=== PATIENT | male | born 1985 | race Hispanic/Latino ===

== ENCOUNTER 2019-02-22 06:05 | Emergency (ER) | payer BC ==
[2019-02-22 06:47] LABS: Absolute Lymphocytes (CBC) 0.5 K/uL (0.7-4.9); Basophils % 0.1 % (0-1.3); Eosinophils % 0.4 % (0-4.4); Hematocrit 47.5 % (39.6-49.0); Lymphocytes % 3.2 % (15.3-44.8); Monocytes % 3.9 % (3.3-12.3); RBC Red Blood Cell Count 5.34 M/uL (4.33-5.43)
[2019-02-22] MEDS ORDERED: NA CHLORIDE 0.9% 1,000 ML ONE (06:50)
[2019-02-22] MEDS ORDERED: ONDANSETRON 4 MG/2 ML VIAL ONE (06:50)
[2019-02-22 07:00] LABS: ALT/SGPT 33 U/L (12-78); AST/SGOT 17 U/L (15-37); Albumin 4.3 g/dL (3.4-5.0); Alkaline Phosphatase 80 U/L (45-117); BUN Blood Urea Nitrogen 22 mg/dL (7-18); Bicarbonate 25 mmol/L (21-32); Bilirubin Direct 0.1 mg/dL (0-0.2); Bilirubin Total 0.5 mg/dL (0.2-1.0); CKMB Creatine Kinase MB < 1.0 ng/mL (0.3-3.6); Creatine Phosphokinase 57 U/L (39-308); Glucose Level 115 mg/dL (74-106); Lipase 111 U/L (73-393); Magnesium 2.6 mg/dL (1.8-2.4); Potassium 3.8 mmol/L (3.5-5.1); Protein, Total 8.2 g/dL (6.4-8.2); Sodium Level 141 mmol/L (136-145); Troponin I < 0.02 ng/mL (0.0-0.045)
[2019-02-22] MEDS ORDERED: PANTOPRAZOLE 40 MG INJ ONE (07:00)
[2019-02-22] MEDS ORDERED: DICYCLOMINE HCL 10 MG CAP ONE (07:45)
[2019-02-22] MEDS ORDERED: MORPHINE 4 MG/ML SYR ONE (07:46)
--- NOTE | 2019-02-22 07:47 | RAD REPORT ---
EXAM DESCRIPTION: CT - Abdomen Pelvis W Contrast - 02/22/2019 7:17 am CLINICAL HISTORY: Abdominal pain, vomiting COMPARISON: None. TECHNIQUE: Biphasic, helical CT imaging of the abdomen and pelvis was performed following 100 ml non -ionic IV contrast. No oral contrast administered. All CT scans are performed using dose optimization technique as appropriate and may include automated exposure control or mA/KV adjustment according to patient size. FINDINGS: No suspicious findings in the lung bases. Liver shows a mild diffuse fatty infiltration pattern. No focal liver lesions. Spleen and pancreas un remarkable. Gallbladder and biliary tree are also without suspicious finding. Symmetric renal function is seen with no hydronephrosis or suspicious renal mass. No pyelonephritis o r acute parenchymal process. No bladder abnormalities. No adrenal abnormalities. Stomach is filled with fluid. No gastric wall thickening or mass. No duodenum abnormality seen. Multi ple loops of jejunum and ileum are fluid-filled and distended. The appendix is normal. No focal mass or wall thickening. No colon abnormalities. No free air, free fluid or inflammatory stranding. No m ass or bulky lymphadenopathy. Fat extends into the origin of the right inguinal canal. A small fat on ly left inguinal hernia is present. No suspicious bony findings. IMPRESSION: Gastroenteritis or ileus pattern. No bowel obstruction or surgically emergent finding. Fatty infiltration of the liver.
[2019-02-22 07:58] LABS: Barbiturates NEGATIVE (NEGATIVE); Benzodiazepines NEGATIVE (NEGATIVE); Cocaine NEGATIVE (NEGATIVE); METHAMPHETAM NEGATIVE (NEGATIVE); Methadone NEGATIVE (NEGATIVE); Opiates NEGATIVE (NEGATIVE); Phencyclidine NEGATIVE (NEGATIVE); THC Cannibis NEGATIVE (NEGATIVE)
--- NOTE | 2019-02-22 08:16 | EDPHYS ---
Physician Documentation [facility] Name: Jamar Burris Jr Age: 34 yrs Sex: Male : 1985 Arrival Date: 02/22/2019 Time: 06:09 Bed 15 Private MD: Alfonzo Kerr ED Physician Nahum Galvan HPI: 02/22 06:30 This 34 yrs old Male presents to ER via Unassigned with complaints of Vomiting.cp 06:30 The patient presents to the emergency department with nausea, that is mild, vomiting, cp that is intermittent, diarrhea, that is intermittent, abdominal pain, of the upper abdomen. Onset: The symptoms/episode began/occurred last night. Possible causes: unknown. Associated signs and symptoms: Pertinent negatives: dysuria, fever, GI bleeding, chest pain. Severity of symptoms: in the emergency department the symptoms are unchanged despite home interventions. Historical: - Allergies: 06:13 No Known Allergies; jb4 - Home Meds: 06:13 lisinopril-hydrochlorothiazide oral oral [Active]; jb4 - PMHx: 06:13 Hypertension; jb4 - PSHx: 06:13 None; jb4 - Immunization history:: Adult Immunizations up to date. - Social history:: Smoking status: Patient/guardian denies using tobacco, Patient uses alcohol, occasionally. - Ebola Screening: : No symptoms or risks identified at this time. ROS: 06:31 Eyes: Negative for injury, pain, redness, and discharge. cp 06:31 Constitutional: Negative for body aches, chills, fever, poor PO intake. 06:31 ENT: Negative for drainage from ear(s), ear pain, sore throat, difficulty swallowing, difficulty handling secretions. 06:31 Cardiovascular: Negative for chest pain, edema, palpitations. 06:31 Respiratory: Negative for cough, shortness of breath, wheezing. 06:31 Abdomen/GI: Positive for abdominal pain, nausea, vomiting, and diarrhea, Negative for hematemesis, black/tarry stool, rectal bleeding. 06:31 : Negative for urinary symptoms. 06:31 Skin: Negative for rash. 06:31 Neuro: Negative for altered mental status, headache, weakness. 06:31 All other systems are negative. Exam: 06:33 Head/Face: Normocephalic, atraumatic. cp 06:33 Constitutional: The patient appears in no acute distress, alert, awake, non-toxic, well developed, well nourished. 06:33 Eyes: Periorbital structures: appear normal, Conjunctiva: normal, no exudate, no injection, Sclera: no appreciated abnormality, Lids and lashes: appear normal, bilaterally. 06:33 ENT: External ear(s): are unremarkable, Nose: is normal, Mouth: Lips: moist, Oral mucosa: pink and intact, moist, Posterior pharynx: is normal, airway is patent, no erythema, no exudate. 06:33 Neck: ROM/movement: Meningeal signs: are not present, nuchal rigidity, is not appreciated. 06:33 Chest/axilla: Inspection: normal, Palpation: is normal, no crepitus, no tenderness. 06:33 Cardiovascular: Rate: tachycardic, Rhythm: regular, Edema: is not appreciated, JVD: is not appreciated. 06:33 Respiratory: the patient does not display signs of respiratory distress, Respirations: normal, no use of accessory muscles, no retractions, no splinting, no tachypnea, labored breathing, is not present, Breath sounds: are clear throughout, no decreased breath sounds, no stridor, no wheezing. 06:33 Abdomen/GI: Inspection: abdomen appears normal, Bowel sounds: active, all quadrants, Palpation: soft, in all quadrants, moderate abdominal tenderness, in the right upper quadrant and left upper quadrant, rebound tenderness, is not appreciated, voluntary guarding, is not appreciated, involuntary guarding, is not appreciated. Vital Signs: 06:13 BP 131 / 93; Pulse 126; Resp 16; Temp 99.3(O); Pulse Ox 95% on R/A; Weight 106.14 kg jb4 (R); Height 5 ft. 5 in. (165.10 cm) (R); Pain 5/10; 07:09 BP 134 / 86; Pulse 104; Resp 16; Temp 97.6(TE); Pulse Ox 98% on R/A; mh5 08:33 BP 128 / 81; Pulse 65; Resp 16; Temp 98.9; Pulse Ox 96% ; bp 06:13 Body Mass Index 38.94 (106.14 kg, 165.10 cm) jb4 MDM: 06:15 Patient medically screened. cp 07:00 Differential diagnosis: gastritis, pancreatitis, viral gastroenteritis, cp gastroenteritis, colitis. 08:15 Data reviewed: vital signs, nurses notes, lab test result(s), radiologic studies, CT cp scan. 08:15 Counseling: I had a detailed discussion with the patient and/or guardian regarding: the cp historical points, exam findings, and any diagnostic results supporting the discharge/admit diagnosis, lab results, radiology results, to return to the emergency department if symptoms worsen or persist or if there are any questions or concerns that arise at home. Response to treatment: the patient's symptoms have markedly improved after treatment, VSS. Pain and nausea markedly improved. Will discharge to home for continued monitoring. 02/22 06:27 Order name: Basic Metabolic Panel 02/22 06:27 Order name: CBC with Diff 02/22 06:27 Order name: Creatinine for Radiology 02/22 06:27 Order name: Hepatic Function cp 02/22 06:27 Order name: Lipase cp 02/22 06:27 Order name: Magnesium cp 02/22 06:27 Order name: CK; Complete Time: 07:02 cp 02/22 06:27 Order name: Troponin I; Complete Time: 07:02 cp 02/22 06:27 Order name: UDS cp 02/22 06:27 Order name: Ckmb; Complete Time: 07:02 cp 02/22 06:28 Order name: Basic Metabolic Panel; Complete Time: 07:02 EDMS 02/22 07:03 Interpretation: Normal except: GLUC 115; BUN 22; GFR 85. cp 02/22 06:28 Order name: CBC with Automated Diff EDMS 02/22 06:57 Interpretation: Normal except: WBC 14.7; MINOO% 92.4; LYM% 3.2; NEUT A 13.6; LYMA 0.5. cp 02/22 06:28 Order name: Creatinine (Radiology Only); Complete Time: 06:57 EDMS 02/22 06:28 Order name: Liver (Hepatic) Function; Complete Time: 07:02 EDMS 02/22 06:27 Order name: IV Saline Lock; Complete Time: 06:28 cp 02/22 06:27 Order name: Labs collected and sent; Complete Time: 06:43 cp 02/22 06:27 Order name: EKG; Complete Time: 06:29 cp 02/22 06:28 Order name: Lipase; Complete Time: 07:02 EDMS 02/22 06:28 Order name: Magnesium; Complete Time: 07:02 EDMS 02/22 07:49 Interpretation: Abnormal: MG 2.6. cp 02/22 06:58 Order name: CT Abd/Pelvis - IV Contrast Only; Complete Time: 07:48 cp 02/22 07:44 Order name: Urine Dipstick--Ancillary (enter results) em1 02/22 06:27 Order name: EKG - Nurse/Tech; Complete Time: 06:28 cp 02/22 06:27 Order name: Urine Dipstick-Ancillary (obtain specimen); Complete Time: 07:37 cp 02/22 07:50 Order name: PO challenge; Complete Time: 08:03 cp Administered Medications: 06:38 CANCELLED (Other Intervention Used): Pepcid 20 mg IVP once cc3 06:39 CANCELLED (Physician Discretion): ProTONIX 40 mg IVP once cp 06:40 Drug: NS 0.9% 1000 ml Route: IV; Rate: 1 bolus; Site: right antecubital; jb4 08:35 Follow up: IV Status: Completed infusion; IV Intake: 1000ml bp 06:40 Drug: Zofran 4 mg Route: IVP; Site: right antecubital; jb4 07:37 Follow up: Response: Nausea is decreased bp 06:51 Drug: ProTONIX 40 mg Route: IVP; Site: right antecubital; jb4 07:36 Follow up: Response: No adverse reaction bp 07:20 Drug: morphine 4 mg Route: IVP; Site: right antecubital; bp 08:04 Follow up: Response: Pain is decreased bp 07:20 Drug: Bentyl 20 mg Route: PO; bp 08:04 Follow up: Response: No adverse reaction bp 08:15 Drug: Cipro 500 mg Route: PO; bp 08:34 Follow up: Response: No adverse reaction bp 08:15 Drug: metroNIDAZOLE 500 mg Route: PO; bp 08:35 Follow up: Response: No adverse reaction bp Disposition: 18:55 Co-signature as Attending Physician, Nahum Galvan MD Available for consultation at ps1 all times . Disposition: 02/22/19 08:15 Discharged to Home. Impression: Nausea and vomiting, Diarrhea, unspecified. - Condition is Stable. - Discharge Instructions: Food Choices to Help Relieve Diarrhea, Adult, Diarrhea, Adult, Nausea and Vomiting, Adult. - Prescriptions for Cipro 500 mg Oral Tablet - take 1 tablet by ORAL route every 12 hours for 10 days; 20 tablet. Tylenol- Codeine #3 300-30 mg Oral Tablet - take 2 tablets by ORAL route every 6 hours As needed; 15 tablet. Zofran 4 mg Oral Tablet - take 1 tablet by ORAL route every 12 hours As needed; 20 tablet. Metronidazole 500 mg Oral Tablet - take 1 tablet by ORAL route every 8 hours; 30 tablet. - Medication Reconciliation Form, Thank You Letter, Antibiotic Education, Prescription Opioid Use, Work release form form. - Follow up: Private Physician; When: 1 - 2 days; Reason: Recheck today's complaints. - Problem is new. - Symptoms have improved. Signatures: Dispatcher [employer] EDMS Cedric Khanna PA PA cp Ceasar Rincon, RN RN jb4 Alfonzo Barrios RN RN Nahum Copeland MD MD ps1 Cordel, Charlene cc3 Corrections: (The following items were deleted from the chart) 06:38 06:27 Pepcid 20 mg IVP once ordered. cp cc3 06:39 06:38 ProTONIX 40 mg IVP once ordered. cp cp 06:57 06:57 Normal except: WBC 14.7; MINOO% 92.4; LYM% 3.2; NEUT A 13.6. cp cp 08:36 08:15 02/22/2019 08:15 Discharged to Home. Impression: Nausea and vomiting; Diarrhea, bp unspecified. Condition is Stable. Forms are Medication Reconciliation Form, Thank You Letter, Antibiotic Education, Prescription Opioid Use. Follow up: Private Physician; When: 1 - 2 days; Reason: Recheck today's complaints. Problem is new. Symptoms have improved. cp
--- NOTE | 2019-02-22 08:16 | ER ---
Nurse's Notes [facility] Name: Jamar Burris Jr Age: 34 yrs Sex: Male : 1985 Arrival Date: 02/22/2019 Time: 06:09 Bed 15 Private MD: Alfonzo Kerr Diagnosis: Nausea and vomiting;Diarrhea, unspecified Presentation: 02/22 06:13 Presenting complaint: Patient states: I started vomiting yesterday, I feel weak all jb4 over dizzy and have cramps. 06:13 Transition of care: patient was not received from another setting of care. Onset of jb4 symptoms was February 21, 2019. Risk Assessment: Do you want to hurt yourself or someone else? Patient reports no desire to harm self or others. Initial Sepsis Screen: Does the patient meet any 2 criteria? HR > 90 bpm. Yes Does the patient have a suspected source of infection? Yes: Acute abdominal pain. Care prior to arrival: None. 06:13 Method Of Arrival: Ambulatory jb4 06:13 Acuity: YKOO 3 jb4 Historical: - Allergies: 06:13 No Known Allergies; jb4 - Home Meds: 06:13 lisinopril-hydrochlorothiazide oral oral [Active]; jb4 - PMHx: 06:13 Hypertension; jb4 - PSHx: 06:13 None; jb4 - Immunization history:: Adult Immunizations up to date. - Social history:: Smoking status: Patient/guardian denies using tobacco, Patient uses alcohol, occasionally. - Ebola Screening: : No symptoms or risks identified at this time. Screenin:52 Abuse screen: Denies threats or abuse. Nutritional screening: No deficits noted. jb4 Tuberculosis screening: No symptoms or risk factors identified. Fall Risk IV access (20 points). Gait- Weak (10 pts.). Total Bermeo Fall Scale indicates Low Risk Score (25-44 pts). Fall prevention measures have been instituted. Side Rails Up X 2 Placed close to Nursing Station Frequent Obs/Assesments occuring Family Present and informed to notify staff if they need to leave bedside As available Patient and Family Educated on Fall Prevention Program and strategies. Assessment: 06:51 General: Appears in no apparent distress. uncomfortable, Behavior is calm, cooperative, jb4 appropriate for age. Pain: Complains of pain in abdomen Pain does not radiate. Pain currently is 10 out of 10 on a pain scale. Quality of pain is described as crampy, Pain began 1 day ago. Neuro: Level of Consciousness is awake, alert, obeys commands, Oriented to person, place, time, situation. Cardiovascular: Patient's skin is warm and dry. Respiratory: Airway is patent Respiratory effort is even, unlabored, Respiratory pattern is regular, symmetrical. GI: Abdomen is non-distended, obese, Bowel sounds present X 4 quads. Abd is soft X 4 quads Abdomen is tender to palpation X 4 quads. : No signs and/or symptoms were reported regarding the genitourinary system. EENT: No signs and/or symptoms were reported regarding the EENT system. Derm: Skin is intact, Skin is pink, warm \T\ dry. Musculoskeletal: Circulation, motion, and sensation intact. 07:00 Reassessment: RECD REPORT FROM JUVENTINO HENDRICKS. 34YO HM P/W VOMITING x2 DAYS. CT AND UOP bp PENDING. NO ACTIVE VOMITING AT THIS TIME. 07:13 Reassessment: PT TO CT. bp 08:32 Reassessment: PT D/C HOME AMBULATORY WITH FAMILY, DX WITH NAUSEA, VOMITING AND DIARRHEA.bp Vital Signs: 06:13 BP 131 / 93; Pulse 126; Resp 16; Temp 99.3(O); Pulse Ox 95% on R/A; Weight 106.14 kg jb4 (R); Height 5 ft. 5 in. (165.10 cm) (R); Pain 5/10; 07:09 BP 134 / 86; Pulse 104; Resp 16; Temp 97.6(TE); Pulse Ox 98% on R/A; mh5 08:33 BP 128 / 81; Pulse 65; Resp 16; Temp 98.9; Pulse Ox 96% ; bp 06:13 Body Mass Index 38.94 (106.14 kg, 165.10 cm) jb4 ED Course: 06:09 Patient arrived in ED. am2 06:10 Alfonzo Kerr MD is Private Physician. am2 06:10 Cedric Khanna PA is PHCP. cp 06:10 Mark Jiang MD is Attending Physician. cp 06:13 Arm band placed on left wrist. EKG completed in triage. Results shown to . jb4 06:20 Inserted saline lock: 20 gauge in right antecubital area, using aseptic technique. cc3 Blood collected. 06:21 Ceasar Rincon, RN is Primary Nurse. jb4 06:30 Triage completed. jb4 06:52 Patient has correct armband on for positive identification. Placed in gown. Bed in low jb4 position. Call light in reach. Side rails up X 1. Pulse ox on. NIBP on. 07:15 CT completed. Patient tolerated procedure well. Patient moved to CT via wheelchair. jg6 Patient moved to CT via wheelchair. 07:17 CT Abd/Pelvis - IV Contrast Only In Process Unspecified. EDMS 07:43 Urine collected: clean catch specimen, clear. 5 07:44 UDS Sent. 5 08:17 Nahum Galvan MD is Attending Physician. cp 08:32 No provider procedures requiring assistance completed. IV discontinued, intact, bp bleeding controlled, No redness/swelling at site. Pressure dressing applied. Administered Medications: 06:38 CANCELLED (Other Intervention Used): Pepcid 20 mg IVP once cc3 06:39 CANCELLED (Physician Discretion): ProTONIX 40 mg IVP once cp 06:40 Drug: NS 0.9% 1000 ml Route: IV; Rate: 1 bolus; Site: right antecubital; jb4 08:35 Follow up: IV Status: Completed infusion; IV Intake: 1000ml bp 06:40 Drug: Zofran 4 mg Route: IVP; Site: right antecubital; jb4 07:37 Follow up: Response: Nausea is decreased bp 06:51 Drug: ProTONIX 40 mg Route: IVP; Site: right antecubital; jb4 07:36 Follow up: Response: No adverse reaction bp 07:20 Drug: morphine 4 mg Route: IVP; Site: right antecubital; bp 08:04 Follow up: Response: Pain is decreased bp 07:20 Drug: Bentyl 20 mg Route: PO; bp 08:04 Follow up: Response: No adverse reaction bp 08:15 Drug: Cipro 500 mg Route: PO; bp 08:34 Follow up: Response: No adverse reaction bp 08:15 Drug: metroNIDAZOLE 500 mg Route: PO; bp 08:35 Follow up: Response: No adverse reaction bp Intake: 08:35 IV: 1000ml; Total: 1000ml. bp Outcome: 08:15 Discharge ordered by . cp 08:34 Discharged to home ambulatory, with family. bp 08:34 Condition: stable 08:34 Discharge instructions given to patient, Instructed on discharge instructions, follow up and referral plans. medication usage, Demonstrated understanding of instructions, follow-up care, medications, Prescriptions given X 4. 08:36 Patient left the ED. bp Signatures: Dispatcher [employer] EDMS Cedric Khanna PA PA cp Bryson, James, RN RN 4 Magui Izaguirre [facility] Luisa Cannon Brian, RN RN bp Suzy Diaz cc3 Machelle Prasad6
[2019-02-22 08:29] LABS: Urine Blood NEGATIVE (NEG); Urine Glucose TRACE (NEG); Urine Protein 2+ (NEG); Urine Specific Gravity 1.025 (1.005-1.030); Urine pH 6.5 (5.0-7.0)
[2019-02-22] MEDS ORDERED: metroNIDAZOLE 500 MG TABLET ONE (08:29)
[2019-02-22] MEDS ORDERED: CIPROFLOXACIN HCL 500 MG TAB ONE (08:29)
[2019-02-22 08:44] LABS: Blood Morphology Comment NOT SEEN (NOT SEEN); Platelet Estimate ADEQ; Urine White Blood Cell Casts OK
--- NOTE | 2019-02-22 12:50 | EKG ---
Test Date: 2019-02-22 Test Time: 06:20:19 [place]: ROSEANNE MEASUREMENT RESULTS: Intervals: Rate: 121 IL: 142 QRSD: 80 QT: 318 QTc: 451 [place]: P: 35 IL: 142 QRS: 146 T: 1 INTERPRETIVE STATEMENTS: Sinus tachycardia Inferior infarct, age undetermined Anterolateral infarct, age undetermined Abnormal ECG Compared to ECG 01/16/2006 07:53:39 Myocardial infarct finding now present Sinus rhythm no longer present Electronically Signed On 02-22-19 12:49:23 CDT by Raul Claros
== END 2019-02-22 08:36 | disposition home or self-care (01) ==
LOC: ER 06:05
DX: R19.7 Diarrhea, unspecified (principal); I10 Essential (primary) hypertension
CPT/HCPCS: 36415; 74177; 80048; 80076; 80307; 81003; 82550; 82553; 83690; 83735; 84484; 85025; 93005; 96361; 96374; 96375; 99284; C9113; J2405; J7030; Q9967

== ENCOUNTER 2022-02-04 07:05 | Day surgery (SDC) | payer BC ==
[2022-02-04] MEDS ORDERED: ACETAMINOPHEN 500 MG TAB ONE (07:37)
[2022-02-04] MEDS ORDERED: CELECOXIB 100 MG CAPSULE ONE (07:37)
[2022-02-04] MEDS ORDERED: CEFAZOLIN SODIUM 1 GM/VIAL ONE (07:37)
[2022-02-04] MEDS ORDERED: BUPIVACA 0.5%/EPI 0.0005%/PF 30 ML VIAL ONE (07:39)
[2022-02-04] MEDS: Ringers Lactate 1,000 ML IV ONE ×2 (07:47→08:25)
[2022-02-04] MEDS ORDERED: MIDAZOLAM HCL 2 MG/2 ML INJ ONE (07:55)
[2022-02-04] MEDS ORDERED: propofoL 200 MG/20 ML VIAL IV ONE (07:55)
[2022-02-04] MEDS ORDERED: dexAMETHasone 10 MG/ML VIAL ONE (07:55)
[2022-02-04] MEDS ORDERED: FENTANYL CITR 100 MCG/2 ML ONE (07:55)
[2022-02-04] MEDS ORDERED: LIDOCAINE 2% MPF 5 ML VIAL ONE (07:56)
[2022-02-04] MEDS ORDERED: ONDANSETRON 4 MG/2 ML VIAL ONE (07:56)
[2022-02-04] MEDS ORDERED: KETOROLAC 30 MG/ML INJ ONE (07:56)
--- NOTE | 2022-02-04 08:46 | P.OP ---
Preoperative diagnosis: RIGHT Upper Back / Shoulder Lipoma Postoperative diagnosis: RIGHT Upper Back / Shoulder Lipoma Primary procedure: Excision of RIGHT Upper Back / Shoulder Lipoma Anesthesia: GETA + Local Estimated blood loss: <5 cc Specimen: Lipoma ~ 5cm Findings: ~ 5cm mass Complications: None Transferred to: Recovery Room Condition: Good
[2022-02-04 10:27] VITALS: BP 114/73; TEMP 97.1; O2SAT 97
--- NOTE | 2022-02-04 14:19 | OP ---
Date of Procedure: 02/04/2022 Surgeon: Ernesto Conner MD, Preoperative Diagnosis: Right upper back and shoulder lipoma. Postoperative Diagnosis: Right upper back and shoulder lipoma. Procedure Performed: Excision of right upper back/shoulder lipoma. Anesthesia: General endotracheal plus local with 0.25% Marcaine. Estimated Blood Loss: Less than 5 cc. Specimen: Lipomatous mass circumferentially. Findings: Approximately 5 cm lipomatous mass of the right upper shoulder blade area. Complications: None. Disposition: The patient was transferred to the recovery room in good condition. Procedure In Detail: After informed consent was obtained, the patient was brought to the operating r oom, prepped and draped in the usual sterile fashion after adequate anesthesia achieved. I anestheti zed the area of right upper shoulder with 0.25% Marcaine, sharply dissected down using a 15-blade zoey n to subcutaneous tissues. Electrocautery was used to dissect down circumferentially to subcutaneous fat. Circumferentially, I used electrocautery to remove a lipomatous mass on the right shoulder are a/shoulder blade area using blunt dissection and electrocautery, ultimately the mass removed, sent of f for pathologic examination. Minimal hemostasis was required using electrocautery. The lipomatous mass was attached to the fascia overlying the muscle, but not investing into the muscle. After this was cleansed with sterile saline, the deep dermal plane was closed using interrupted 3-0 Vicryl sutur e and skin was closed with 4-0 Monocryl in a running fashion. Dermabond placed over top. The patien t tolerated the procedure well without evidence of complication and transferred to PACU in good condi tion. All counts were correct at the end of the case. TK/MODL Voice ID: [id number] Report ID: [id number]
== END 2022-02-04 10:03 | disposition home or self-care (01) ==
LOC: OR 07:05
PROVIDERS: ATTEND Surgery
PROC: 0JB70ZZ Excision of Back Subcutaneous Tissue and Fascia, Open Approach (ICD-10-PCS; principal; 2022-02-04 08:00)
DX: D17.1 Benign lipomatous neoplasm of skin and subcutaneous tissue of trunk (principal); Z20.822 Contact with and (suspected) exposure to COVID-19
CPT/HCPCS: 88304; 11406; U0003; J2704; J2250; J3010; J1100; J7120; J2405; J0690